=== PATIENT | female | born 1965 | race Caucasian/White ===

== ENCOUNTER → 2017-01-06 | Outpatient (CLI) | payer BC ==
[~2017-01-06] MED LIST: ASPIRIN E.C. 8181 MG PO; CLARITIN 1010 MG/TAB PO; LEVORA-28 30 MC1 TA1 PO; MULTIPLE VITAMI1 CAP PO; TOPROL XL 50MG50 MG PO
== END ==
LOC: MC.RAD 12-27 15:00
DX: Z12.31 Encounter for screening mammogram for malignant neoplasm of breast (principal)

== ENCOUNTER → 2017-07-28 | Outpatient (CLI) | payer BC | LOC: COL.RAD 09:45 | DX: K82.4 Cholesterolosis of gallbladder (principal) ==

== ENCOUNTER → 2018-03-23 | Outpatient (CLI) | payer BC | LOC: MC.RAD 09:37 | DX: Z12.31 Encounter for screening mammogram for malignant neoplasm of breast (principal) ==

== ENCOUNTER → 2018-04-23 | Outpatient (CLI) | payer BC ==
[~2018-04-23] VITALS: Ht 167.6 cm; Wt 140.4 kg
[2018-04-23 08:26] VITALS: BP 132/80; PULSE 76
== END ==
LOC: LIGHT 07:53
DX: I48.91 Unspecified atrial fibrillation (principal); M15.9 Polyosteoarthritis, unspecified; E66.01 Morbid (severe) obesity due to excess calories; Z68.43 Body mass index [BMI] 50.0-59.9, adult; Z71.3 Dietary counseling and surveillance; R73.01 Impaired fasting glucose
CPT/HCPCS: G0463

== ENCOUNTER → 2018-06-04 | Outpatient (CLI) | payer BC ==
[~2018-06-04] VITALS: Ht 167.6 cm; Wt 138.6 kg
[2018-06-04 16:57] VITALS: BP 116/70; PULSE 68
== END ==
LOC: LIGHT 16:37
DX: I48.91 Unspecified atrial fibrillation (principal); M15.9 Polyosteoarthritis, unspecified; R73.01 Impaired fasting glucose; E66.01 Morbid (severe) obesity due to excess calories; Z68.43 Body mass index [BMI] 50.0-59.9, adult; Z71.3 Dietary counseling and surveillance
CPT/HCPCS: G0463

== ENCOUNTER → 2018-07-16 | Outpatient (CLI) | payer BC ==
[~2018-07-16] VITALS: Ht 167.6 cm; Wt 138.1 kg
[2018-07-16 16:08] VITALS: BP 120/80; PULSE 72
== END ==
LOC: LIGHT 11:49
DX: I48.91 Unspecified atrial fibrillation (principal); M15.9 Polyosteoarthritis, unspecified; R73.01 Impaired fasting glucose; E66.01 Morbid (severe) obesity due to excess calories; Z68.42 Body mass index [BMI] 45.0-49.9, adult; Z71.3 Dietary counseling and surveillance
CPT/HCPCS: G0463

== ENCOUNTER → 2018-10-15 | Outpatient (CLI) | payer BC ==
[~2018-10-15] VITALS: Ht 167.6 cm; Wt 138.6 kg
[2018-10-15 15:40] VITALS: BP 126/78; PULSE 80
== END ==
LOC: LIGHT 08-11 11:18
DX: I48.91 Unspecified atrial fibrillation (principal); M15.9 Polyosteoarthritis, unspecified; R73.01 Impaired fasting glucose; E66.01 Morbid (severe) obesity due to excess calories; Z68.42 Body mass index [BMI] 45.0-49.9, adult; Z71.3 Dietary counseling and surveillance
CPT/HCPCS: G0463

== ENCOUNTER → 2019-05-13 | Outpatient (CLI) | payer BC ==
[~2019-05-13] VITALS: Ht 167.6 cm; Wt 144.5 kg
[~2019-05-13] MED LIST changes: +FASTIN30 MG PO; +VIVLODEX5 MG PO
[2019-05-13 10:03] VITALS: BP 146/80; PULSE 81
== END ==
LOC: LIGHT 11-09 13:04
DX: I48.91 Unspecified atrial fibrillation (principal); M15.9 Polyosteoarthritis, unspecified; R73.01 Impaired fasting glucose; E66.01 Morbid (severe) obesity due to excess calories; Z68.43 Body mass index [BMI] 50.0-59.9, adult; Z71.3 Dietary counseling and surveillance
CPT/HCPCS: G0463

== ENCOUNTER → 2019-06-01 | Outpatient (CLI) | payer BC ==
[~2019-06-01] VITALS: Ht 167.6 cm; Wt 141.3 kg
== END ==
LOC: LIGHT 10:03
DX: I48.91 Unspecified atrial fibrillation (principal); M15.9 Polyosteoarthritis, unspecified; R73.01 Impaired fasting glucose; E66.01 Morbid (severe) obesity due to excess calories; Z68.43 Body mass index [BMI] 50.0-59.9, adult; Z71.3 Dietary counseling and surveillance

== ENCOUNTER → 2019-06-23 | Outpatient (CLI) | payer BC | LOC: MC.RAD 06:55 | DX: Z12.31 Encounter for screening mammogram for malignant neoplasm of breast (principal) ==

== ENCOUNTER → 2019-06-25 | Outpatient (CLI) | payer BC | LOC: COL.RAD 06:35 | DX: K82.8 Other specified diseases of gallbladder (principal) | CPT/HCPCS: A9537 ==

== ENCOUNTER 2019-08-03 08:33 | Day surgery (SDC) | payer BC ==
[~2019-08-03] VITALS: Ht 167.6 cm; Wt 142.7 kg
[2019-08-03] VITALS (7 sets, daily range): BP systolic 115–144; BP diastolic 49–61; PULSE 58–74; TEMP 97.8–98.6
[2019-08-03] MEDS ORDERED: PEPCID40 MG PO (09:05)
[2019-08-03] MEDS ORDERED: NORCO 325 MG-51 TAB PO (11:26)
--- NOTE | 2019-08-03 12:15 | NUR ---
Pt arrived to [facility] after PACU awake, alert, and oriented. VSS and WNL on RA. Discussed with patient and the goals for today before d/c including voiding, eating, drinking, and pt feeling comfortable enough to go home. Pt agreew with plan and expresses understanding of the plan. Pt's dressing (3 incisions) are CDA. Pt expresses some mild epigastric pain.
--- NOTE | 2019-08-03 12:30 | NUR ---
Pt up to bathroom successfully and drank water. Pt expresses increasing nausea. VSS and WNL on RA. Call light within reach
--- NOTE | 2019-08-03 12:45 | NUR ---
Pt's nausea continuing to increase. This RN offered iv antinausea med, and pt agrees. VSS and WNL on RA.
--- NOTE | 2019-08-03 13:00 | NUR ---
IV phenergan given. VSS and WNL. Call light within reach.
--- NOTE | 2019-08-03 13:30 | NUR ---
Pt states that her nausea has gotten better/under control. She also stated, however, that her head feels "sort of fuzzy/woozy still", so she would like to stay longer. This RN agrees. VSS and WNL.
--- NOTE | 2019-08-03 14:00 | NUR ---
Pt successfully ate crackers with no increased nausea. VSS and WNL on RA
--- NOTE | 2019-08-03 14:30 | NUR ---
Reviewed discharge information with pt and including when to call doctor with adverse side effects/symptoms. Pt agrees with plan and expresses understanding. Pt states that she is ready to go home, and she meets criteria for discharge. Gave pain pill script as well as discharge information. Upon discharge, pt's dressing was CDA, abdomen was soft, and pt denies any pain. Number given to patient to follow up if she had further concerns/questions. Pt wheeled out to private car in .
== END 2019-08-03 14:30 | disposition home or self-care (01) ==
LOC: SDCO 08:33
DX: K81.1 Chronic cholecystitis (principal); Z88.0 Allergy status to penicillin; I48.91 Unspecified atrial fibrillation; Z79.899 Other long term (current) drug therapy; Z79.82 Long term (current) use of aspirin; M19.90 Unspecified osteoarthritis, unspecified site; K21.9 Gastro-esophageal reflux disease without esophagitis; Z80.0 Family history of malignant neoplasm of digestive organs; Z84.1 Family history of disorders of kidney and ureter; Z82.49 Family history of ischemic heart disease and other diseases of the circulatory system; E66.01 Morbid (severe) obesity due to excess calories; Z68.43 Body mass index [BMI] 50.0-59.9, adult
CPT/HCPCS: J0330; J0690; J1100; J1885; J2270; J2405; J2550; J2704; J2710; J3010; J7120

== ENCOUNTER → 2019-08-19 | Outpatient (CLI) | payer BC ==
[~2019-08-19] VITALS: Ht 167.6 cm; Wt 143.1 kg
[~2019-08-19] MED LIST changes: +NORCO 325 MG-51 TAB PO; +PEPCID40 MG PO
[2019-08-19 14:26] VITALS: BP 150/64; PULSE 57
== END ==
LOC: LIGHT 06-17 11:26
DX: I48.91 Unspecified atrial fibrillation (principal); M15.9 Polyosteoarthritis, unspecified; R73.01 Impaired fasting glucose; E66.01 Morbid (severe) obesity due to excess calories; Z68.43 Body mass index [BMI] 50.0-59.9, adult; Z71.3 Dietary counseling and surveillance
CPT/HCPCS: G0463

== ENCOUNTER → 2020-08-02 | Outpatient (CLI) | payer BC | LOC: MC.RAD 14:30 | DX: Z12.31 Encounter for screening mammogram for malignant neoplasm of breast (principal) ==

== ENCOUNTER → 2021-10-02 | Outpatient (CLI) | payer BC | LOC: MC.RAD 16:36 | DX: Z12.31 Encounter for screening mammogram for malignant neoplasm of breast (principal) ==

== ENCOUNTER → 2022-12-17 | Outpatient (CLI) | payer BC | LOC: MC.RAD 10-03 09:15 | DX: Z12.31 Encounter for screening mammogram for malignant neoplasm of breast (principal) ==

== ENCOUNTER → 2023-12-26 | Outpatient (CLI) | payer BC ==
[~2023-12-26] MED LIST changes: +VESICARE10 MG PO
== END ==
LOC: MC.RAD 14:28
DX: Z12.31 Encounter for screening mammogram for malignant neoplasm of breast (principal)